=== PATIENT | female | born 1935 | race Caucasian/White ===

== ENCOUNTER → 2017-12-27 | Outpatient (CLI) | payer MEDICARE, OTHER ==
[~2017-12-27] MED LIST: ASPIRIN E.C. 8181 MG PO; DITROPAN 5MG TAB5 MG PO; LANOXIN 0.120.125 MG PO; LOPRESSOR 225 MG/TAB PO; LORTAB 5/500 501 TAB PO; PRADAXA 150MG150 MG PO; PRINZIDE 25 MG-1 TAB PO; REMERON 15M15 MG/TA1 PO; TOPROL XL 25MG25 MG PO; VESICARE 5MG5 MG PO; WHEELCHAIR; ZOCOR 20MG20 MG PO
== END ==
LOC: MC.RAD 10:53
DX: Z12.31 Encounter for screening mammogram for malignant neoplasm of breast (principal)

== ENCOUNTER 2018-09-03 06:42 | Day surgery (SDC) | payer MEDICARE, OTHER ==
[~2018-09-03] VITALS: Ht 162.6 cm; Wt 78.3 kg
[2018-09-03] VITALS (13 sets, daily range): BP systolic 106–147; BP diastolic 38–75; PULSE 64–99; TEMP 97.8–98.7
[2018-09-03] MEDS ORDERED: ZOCOR 20MG20 MG PO (07:03)
[2018-09-03] MEDS ORDERED: LANOXIN 0.120.125 MG PO (07:03)
[2018-09-03] MEDS ORDERED: VESICARE 5MG5 MG PO (07:04)
[2018-09-03] MEDS ORDERED: PRINIVIL20 MG PO (07:04)
[2018-09-03] MEDS ORDERED: REMERON 15M15 MG/TA1 PO (07:04)
[2018-09-03] MEDS ORDERED: TOPROL XL 25MG25 MG PO (07:04)
[2018-09-03] MEDS ORDERED: ELIQUIS 5MG PO (07:05)
[2018-09-03] MEDS ORDERED: PAMELOR 25MG25 MG PO (07:05)
--- NOTE | 2018-09-03 08:15 | NUR ---
Dr. Cheatham at the bedside and talks with patient.
--- NOTE | 2018-09-03 08:23 | NUR ---
Assisted patient to restroom where she voids and returns to room.
--- NOTE | 2018-09-03 09:48 | NUR ---
Patient's belongings bag x1 given to TRU Harry in PACU.
--- NOTE | 2018-09-03 10:30 | NUR ---
Patient is back from surgery. Denies pain and nausea at this time. Urine is pink/red with a few small clots. Increased CBI flow at this time. Bernabe is secured and draining well. Offere patient some water or some jello and she did not want anything at this time. No other changes at this time. Call light within reach.
--- NOTE | 2018-09-03 18:30 | NUR ---
Patient has been doing well today. No complaints of nausea or pain. Urine is light pink. CBI is folwing at a slow rate. Patients family brought her food in. She is on a strict sugar free diet. No other changes at this time. Call light within reach.
[2018-09-04 04:29] VITALS: BP 122/56; PULSE 66; TEMP 98.1
[2018-09-04 04:41] VITALS: BP 125/58; PULSE 98; TEMP 98.5
--- NOTE | 2018-09-04 06:03 | NUR ---
Patient has rested well overnight. CBI continues to run, urine is light pink and has small clots. Patient has not complained of pain, call light within reach.
[2018-09-04 07:20] LABS: CALCIUM 9.2 mg/dL (8.4-10.2); CREATININE, serum 1.27 (0.52-1.25); POTASSIUM 4.8 mmol/L (3.4-5.0)
[2018-09-04 07:39] VITALS: BP 139/59; PULSE 92; TEMP 98.1
--- NOTE | 2018-09-04 08:00 | NUR ---
PATIENT IS A&O. VSS. DENIES ANY C/O PAIN OR BLADDER SPASMS. [place]STON TO DEPENDENT DRAINAGE WITH MOD AMOUNTS OF LIGHT PINK URINE, NO CLOTS NOTED. CBI CLAMPED. ELIQUIS IS ON HOLD. OTHER AM MEDS GIVEN. HEAD TO TOE ASSESSMENT WNL. BREAKFAST TRAY AT BEDSIDE. NO C/O N/V. LEFT HAND IV TO INT. PATIENT ASSISTED INTO BEDSIDE CHAIR.
--- NOTE | 2018-09-04 08:30 | NUR ---
PRIMED & PULLED PER ORDERS. PATIENT EDUCATED AND STARTED ON 6 CUP ROUTINE. PATIENT AMBULATED TO BATHROOM AND VOIDED 150CC OF LIGHT PINK URINE, NO CLOTS NOTED. PATIENT EXCITED TO MT HOME LATER TODAY.
--- NOTE | 2018-09-04 09:45 | NUR ---
KYRA met with the patient and patient's daughter, Avis, to discuss discharge plan. The patient lives alone in [place]. She states that her daughter, Avis, lives six houses down from her. She states she has five other children. She reports independence with ADLs and does not have any DME. The patient's PCP is Dr. Jase Bustamante and she receives her medications through the mail from [facility]. She reports no difficulties obtaining her meds. The patient does not have advanced directives, but she was interested in obtaining a form for DPOA-HC. KYRA provided. The patient plans to return home upon discharge. No additional needs at this time.
--- NOTE | 2018-09-04 10:35 | NUR ---
Initial visit; Patient thanked Grip Wrapper for looking in on her and offering comfort, encouragement and God's blessings. Patient told Grip Wrapper she has wonderful kids who are always there for her. Grip Wrapper replied she must have been a wonderful mom to make them they way they are today.
--- NOTE | 2018-09-04 11:31 | NUR ---
The patient completed DPOA-HC. She designated her children, Avis Pedersen, Skyler Pedersen, Brendon Venturavamshiarslan, and Tommy Venturavamshiarslan. SW and the patient's CARDIOLOGY TECH, Evette, witnessed the patient's signature. The patient was provided with the original and some copies. A copy was placed in the patient's chart.
[2018-09-04 12:16] VITALS: BP 143/61; PULSE 84; TEMP 98.3
--- NOTE | 2018-09-04 13:05 | NUR ---
PATIENT DISCHARGING HOME VIA WHEELCHAIR TO PERSONAL VEHICLE WITH FAMILY. DISCHARGE INSTRUCTIONS GIVEN AND FOLLOW UP APT. ANSWERED ALL QUESTIONS/CONCERNS. DC'D LEFT HAND IV, COVERED SITE WITH GAUZE & BANDAID. PERSONAL BELONGINGS SENT WITH PATIENT. PATIENT DISCHARGED.
== END 2018-09-04 13:05 | disposition home or self-care (01) ==
LOC: SDCO 06:42 → SURG 10:19 → SDCO 12:00
PROVIDERS: Urology
DX: C67.9 Malignant neoplasm of bladder, unspecified (principal); N13.30 Unspecified hydronephrosis; R31.0 Gross hematuria; I48.91 Unspecified atrial fibrillation; F32.9 Major depressive disorder, single episode, unspecified; E11.9 Type 2 diabetes mellitus without complications; I10 Essential (primary) hypertension; E78.5 Hyperlipidemia, unspecified; Z79.01 Long term (current) use of anticoagulants; Z87.891 Personal history of nicotine dependence; Z90.49 Acquired absence of other specified parts of digestive tract; Z79.82 Long term (current) use of aspirin; Z86.73 Personal history of transient ischemic attack (TIA), and cerebral infarction without residual deficits; Z85.038 Personal history of other malignant neoplasm of large intestine
CPT/HCPCS: OP; C1769; J0690; J1100; J1885; J2405; J2704; J3010; J7030

== ENCOUNTER 2019-08-01 09:00 | Outpatient (RCR) | payer MEDICARE, OTHER ==
[2019-07-30 10:38] VITALS: BP 181/80; PULSE 110; TEMP 98.6
[2019-07-31 09:04] VITALS: BP 148/78; PULSE 98; TEMP 98.1
[~2019-08-01] VITALS: Ht 162.6 cm; Wt 81.0 kg
[~2019-08-01 09:00] MED LIST changes: +ELIQUIS 5MG PO; +LISINOPRIL-HCTZ 20-2 PO; +PAMELOR 25MG25 MG PO; +PRINIVIL20 MG PO; +TOVIAZ4 MG PO; +ZESTORETIC 25 M1 TAB PO
[2019-08-01 09:25] VITALS: BP 160/61; PULSE 86; TEMP 98.1
== END 2019-08-01 09:57 | disposition home or self-care (01) ==
LOC: EUO 09:00
DX: C67.8 Malignant neoplasm of overlapping sites of bladder (principal); I74.9 Embolism and thrombosis of unspecified artery

== ENCOUNTER 2019-10-28 08:19 | Outpatient (CLI) | payer MEDICARE, OTHER ==
[~2019-10-28] VITALS: Ht 162.6 cm; Wt 78.8 kg
[~2019-10-28 08:19] MED LIST changes: +FERROUS SU325 MG/TAB PO; +LOVENOX120 MG/0.8 SQ; +MONODOX100 PO; +TOPROL XL 50MG50 MG PO
[2019-10-28] MEDS ORDERED: ELIQUIS 5MG PO (08:44)
[2019-10-28] MEDS ORDERED: TOVIAZ4 MG PO (08:45)
[2019-10-28 08:51] VITALS: BP 137/73; PULSE 92; TEMP 98.2
[2019-10-28 08:52] LABS: HEMATOCRIT 39.3 % (37.0-47.0); INR 1.2 (0.8-3.0); MEAN CELL VOLUME 80 fl (80.0-100.0); MEAN CORPUSCULAR HEMOGLOBIN 24 pg (27.0-31.0); MEAN CORPUSCULAR HGB CONC 30 g/dl (33.0-37.0); PLATELET COUNT 319 K/mm3 (130-400); PROTHROMBIN TIME 13.5 SECONDS (9.7-12.8); RED BLOOD COUNT 4.92 M/mm3 (4.10-5.30)
[2019-10-28 08:55] LABS: CALCIUM 10.2 mg/dL (8.4-10.2); CREATININE, serum 1.32 (0.52-1.25)
[2019-10-28 08:58] LABS: HEMOGLOBIN 11.8 g/dl (12.5-16.0)
[2019-10-28] MEDS ORDERED: PACERONE400 MG PO ×2 (11:51→11:52)
[2019-10-28 12:00] VITALS: BP 118/56; PULSE 71
[2019-10-28] MEDS ORDERED: PRINIVIL10 MG PO (12:02)
[2019-10-28 12:15] VITALS: BP 121/61; PULSE 75
[2019-10-28 12:30] VITALS: BP 113/55; PULSE 67
[2019-10-28 12:45] VITALS: BP 120/53; PULSE 65
--- NOTE | 2019-10-28 13:10 | NUR ---
DC instructions reviewed with pt and son Pat. Both express understanding. IV DC'd with catheter intact. Pt has been tolerating water without difficulty. Pt is escorted out by wheelchair to son's car.
== END 2019-10-28 13:10 | disposition home or self-care (01) ==
LOC: COL.RAD
PROVIDERS: Internal Medicine Cardiovascular Disease
DX: I48.91 Unspecified atrial fibrillation (principal)
CPT/HCPCS: J2704

== ENCOUNTER 2019-12-05 08:12 | Day surgery (SDC) | payer MEDICARE, OTHER ==
[~2019-12-05] VITALS: Ht 162.6 cm; Wt 79.5 kg
[2019-12-05] VITALS (7 sets, daily range): BP systolic 112–146; BP diastolic 50–93; PULSE 18–93; TEMP 98.5
[~2019-12-05 08:12] MED LIST changes: +PACERONE400 MG PO; +PRINIVIL10 MG PO
[2019-12-05] MEDS ORDERED: PACERONE400 MG PO (08:31)
[2019-12-05] MEDS ORDERED: PRINIVIL20 MG PO (08:32)
[2019-12-05] MEDS ORDERED: TOPROL XL 50MG50 MG PO (08:33)
[2019-12-05] MEDS ORDERED: ZOCOR 20MG20 MG PO (08:33)
[2019-12-05 09:00] LABS: HEMATOCRIT 40.5 % (37.0-47.0); HEMOGLOBIN 12.2 g/dl (12.5-16.0); MEAN CELL VOLUME 84 fl (80.0-100.0); MEAN CORPUSCULAR HEMOGLOBIN 25 pg (27.0-31.0); MEAN CORPUSCULAR HGB CONC 30 g/dl (33.0-37.0); MEAN PLATELET VOLUME 8.9 fl (7.4-10.4); PLATELET COUNT 304 K/mm3 (130-400); RED BLOOD COUNT 4.81 M/mm3 (4.10-5.30); REDCELL DISTRIBUTION WIDTH-CV 21.7 % (11.5-14.5)
[2019-12-05 09:05] LABS: INR 1.6 (0.8-3.0); PROTHROMBIN TIME 18.2 SECONDS (9.7-12.8)
[2019-12-05 09:08] LABS: PARTIAL THROMBOPLASTIN TIME 37.3 SECONDS (26.0-37.0)
[2019-12-05 09:20] LABS: CALCIUM 10.1 mg/dL (8.4-10.2); CREATININE, serum 1.32 (0.52-1.25); MAGNESIUM 2.1 mg/dL (1.6-2.3); POTASSIUM 4.5 mmol/L (3.4-5.0)
[2019-12-05 09:48] LABS: THYROID STIMULATING HORMONE 1.44 uIU/mL (0.465-4.680)
--- NOTE | 2019-12-05 11:17 | NUR ---
PT TO EXIT AT THIS TIME. PT CARE WAS ASSUMED AT 0945 FROM EMILY OTT. PT WAS SUCCESSFULLY CARDIOVERTED TO SINUS DAVIS RATE 50'S. PT HAS REMAINED PWD, GCS 15, WITH REG AND UNLABORED RESPS. DAUGHTER HAS REMAINED WITH PT AT BS. POST EKG WAS OBTAINED. I HAVE REVIEWED DC AND FU INSTRUCTIONS WITH PT AND DAUGHTER WHO DENIED ANY QUESTIONS OR CONCERNS. IV WAS DC'D WITH CATH INTACT, DRESSING WAS APPLIED. STEADY ON FEET IN HER ROOM. ESCORTED TO EXIT VIA WHEELCHAIR.
== END 2019-12-05 12:37 | disposition home or self-care (01) ==
LOC: COL.CAR 08:12
PROVIDERS: Internal Medicine Cardiovascular Disease
DX: I48.91 Unspecified atrial fibrillation (principal); Z20.828 Contact with and (suspected) exposure to other viral communicable diseases; Z85.51 Personal history of malignant neoplasm of bladder; Z92.21 Personal history of antineoplastic chemotherapy; I10 Essential (primary) hypertension; Z86.73 Personal history of transient ischemic attack (TIA), and cerebral infarction without residual deficits; E78.5 Hyperlipidemia, unspecified; Z85.038 Personal history of other malignant neoplasm of large intestine; F32.9 Major depressive disorder, single episode, unspecified; E11.9 Type 2 diabetes mellitus without complications; Z86.718 Personal history of other venous thrombosis and embolism; Z88.3 Allergy status to other anti-infective agents; Z79.01 Long term (current) use of anticoagulants; Z87.891 Personal history of nicotine dependence
CPT/HCPCS: J2704; J7120

== ENCOUNTER 2020-06-29 11:26 | Day surgery (SDC) | payer MEDICARE, OTHER ==
[~2020-06-29] VITALS: Ht 162.6 cm; Wt 82.0 kg
[2020-06-29 12:12] VITALS: BP 173/95; PULSE 94; TEMP 97.9
[2020-06-29] MEDS ORDERED: DOXYCYCLINE HY100 MG PO (12:20)
--- NOTE | 2020-06-29 12:22 | NUR ---
TO RM AT 1141- CALL LIGHT IN REACH DAUGHTER AT BEDSIDE.
[2020-06-29 14:10] VITALS: BP 152/85; PULSE 80
--- NOTE | 2020-06-29 14:10 | NUR ---
Patient returns to room 2 per cart from surgery accompanied by Yakelin OTT and Nael Moraes CRNA and is arouses to verbal stimuli. Temp 98.1 and room air sats 93%. Left port a catheter site covered with gauze dressing. IV fluids infusing left forearm and site is free of redness. Siderails up x2 and call light in reach. Family at side. Allowed to rest.
[2020-06-29] MEDS ORDERED: NORCO 325 MG-51 TAB PO (14:11)
[2020-06-29 14:25] VITALS: BP 146/75; PULSE 87
--- NOTE | 2020-06-29 14:25 | NUR ---
Awake and denies pain or nausea. Talking with family.
[2020-06-29 14:40] VITALS: BP 143/67; PULSE 74
--- NOTE | 2020-06-29 14:40 | NUR ---
Drinking orange juice and eating chocolate pudding.
[2020-06-29 14:55] VITALS: BP 149/63; PULSE 81
--- NOTE | 2020-06-29 14:55 | NUR ---
Tolerated snack and juice. Denies pain or nausea. IV discontinued and site is free of redness or swelling. Given dismissal instructions and voices understanding of home cares. Informed that script for [place] will be ready for picker and packer at [facility]. Dressing remains clean and dry on the left port a catheter site.
--- NOTE | 2020-06-29 15:00 | NUR ---
Dismissal instructions signed and patient dressed.
--- NOTE | 2020-06-29 15:03 | NUR ---
Patient dismissed to home driven by daughter and taken to the front door per wheelchair and assisted into vehicle with instructions in hand.
== END 2020-06-29 15:03 | disposition home or self-care (01) ==
LOC: SDCO 11:26
DX: C67.9 Malignant neoplasm of bladder, unspecified (principal); I10 Essential (primary) hypertension; I48.91 Unspecified atrial fibrillation; E78.5 Hyperlipidemia, unspecified; I47.1 Supraventricular tachycardia; F32.9 Major depressive disorder, single episode, unspecified; G89.29 Other chronic pain; E11.9 Type 2 diabetes mellitus without complications; E78.00 Pure hypercholesterolemia, unspecified; Z90.710 Acquired absence of both cervix and uterus; Z96.659 Presence of unspecified artificial knee joint; Z79.01 Long term (current) use of anticoagulants; Z79.899 Other long term (current) drug therapy; Z86.73 Personal history of transient ischemic attack (TIA), and cerebral infarction without residual deficits; Z85.038 Personal history of other malignant neoplasm of large intestine; Z92.21 Personal history of antineoplastic chemotherapy; Z91.041 Radiographic dye allergy status
CPT/HCPCS: C1788; J0690; J1100; J1644; J2405; J2704; J3010; J7120

== ENCOUNTER → 2021-05-17 | Outpatient (CLI) | payer MEDICARE, OTHER ==
[~2021-05-17] MED LIST changes: +DOXYCYCLINE HY100 MG PO; +NORCO 325 MG-51 TAB PO
== END ==
LOC: MHCPAIN 13:54
DX: M47.817 Spondylosis without myelopathy or radiculopathy, lumbosacral region (principal); M53.3 Sacrococcygeal disorders, not elsewhere classified; M54.50 Low back pain, unspecified
CPT/HCPCS: G0463

== ENCOUNTER → 2021-06-02 | Outpatient (CLI) | payer MEDICARE, OTHER | LOC: MHCPAIN 09:50 | DX: M53.3 Sacrococcygeal disorders, not elsewhere classified (principal); M54.50 Low back pain, unspecified; M47.817 Spondylosis without myelopathy or radiculopathy, lumbosacral region ==

== ENCOUNTER → 2021-06-07 | Outpatient (CLI) | payer MEDICARE, OTHER | LOC: MHCPAIN 12:49 | DX: M47.817 Spondylosis without myelopathy or radiculopathy, lumbosacral region (principal); M54.50 Low back pain, unspecified; M53.3 Sacrococcygeal disorders, not elsewhere classified | CPT/HCPCS: G0463 ==

== ENCOUNTER → 2021-06-16 | Outpatient (CLI) | payer MEDICARE, OTHER | LOC: MHCPAIN 12:35 | DX: M47.817 Spondylosis without myelopathy or radiculopathy, lumbosacral region (principal); M54.50 Low back pain, unspecified; M53.3 Sacrococcygeal disorders, not elsewhere classified ==

== ENCOUNTER → 2021-06-22 | Outpatient (CLI) | payer MEDICARE, OTHER | LOC: MHCPAIN 08:49 | DX: M47.816 Spondylosis without myelopathy or radiculopathy, lumbar region (principal); M53.3 Sacrococcygeal disorders, not elsewhere classified; M54.16 Radiculopathy, lumbar region; M48.062 Spinal stenosis, lumbar region with neurogenic claudication | CPT/HCPCS: G0463 ==

== ENCOUNTER → 2021-06-30 | Outpatient (CLI) | payer MEDICARE, OTHER | LOC: MHCPAIN 09:53 | DX: M47.816 Spondylosis without myelopathy or radiculopathy, lumbar region (principal); M53.3 Sacrococcygeal disorders, not elsewhere classified; M54.16 Radiculopathy, lumbar region | CPT/HCPCS: A9585; J1100 ==

== ENCOUNTER → 2021-07-19 | Outpatient (CLI) | payer MEDICARE, OTHER | LOC: MHCPAIN 09:16 | DX: M47.817 Spondylosis without myelopathy or radiculopathy, lumbosacral region (principal); M53.3 Sacrococcygeal disorders, not elsewhere classified; M54.50 Low back pain, unspecified | CPT/HCPCS: G0463 ==

== ENCOUNTER → 2021-07-28 | Outpatient (CLI) | payer MEDICARE, OTHER | LOC: MHCPAIN 08:19 | DX: M47.817 Spondylosis without myelopathy or radiculopathy, lumbosacral region (principal); M53.3 Sacrococcygeal disorders, not elsewhere classified | CPT/HCPCS: A9575; G0260; J1040; Q9967 ==

== ENCOUNTER → 2021-08-17 | Outpatient (CLI) | payer MEDICARE, OTHER | LOC: MHCPAIN 14:15 | DX: M47.896 Other spondylosis, lumbar region (principal); M53.3 Sacrococcygeal disorders, not elsewhere classified; M54.50 Low back pain, unspecified | CPT/HCPCS: G0463 ==

== ENCOUNTER 2021-10-05 10:49 | Day surgery (SDC) | payer MEDICARE, OTHER ==
[~2021-10-05] VITALS: Ht 162.6 cm; Wt 82.1 kg
[~2021-10-05 10:49] MED LIST changes: +PACERONE200 MG PO; +PRINIVIL5 MG PO
[2021-10-05] MEDS ORDERED: ZAROXOLYN5 MG PO (11:16)
[2021-10-05 11:18] VITALS: BP 136/67; PULSE 67; TEMP 98.6
[2021-10-05 11:24] LABS: BASO % 0.3 % (0.0-2.0); EOS % 0.4 % (0.0-4.0); GRAN # 8.2 K/mm3 (1.4-6.5); GRAN % 79.6 % (42.2-75.2); HEMATOCRIT 44.5 % (37.0-47.0); HEMOGLOBIN 13.6 g/dl (12.5-16.0); LYMPH % 10.1 % (20.0-51.0); MEAN CELL VOLUME 94 fl (80.0-100.0); MEAN CORPUSCULAR HEMOGLOBIN 29 pg (27-31); MEAN CORPUSCULAR HGB CONC 31 g/dl (33.0-37.0); MEAN PLATELET VOLUME 9.6 fl (7.4-10.4); MONO # 0.9 K/mm3 (0.1-0.6); MONO % 8.5 % (1.7-9.3); PLATELET COUNT 317 K/mm3 (130-400); RED BLOOD COUNT 4.74 M/mm3 (4.10-5.30); REDCELL DISTRIBUTION WIDTH-CV 14.4 % (11.5-14.5)
[2021-10-05 11:31] LABS: INR 1.9 (0.8-3.0); PROTHROMBIN TIME 21.8 SECONDS (9.7-12.8)
[2021-10-05 11:34] LABS: PARTIAL THROMBOPLASTIN TIME 34.1 SECONDS (26.0-37.0)
[2021-10-05 12:09] LABS: CALCIUM 10.1 mg/dL (8.4-10.2); CREATININE, serum 1.43 mg/dL (0.57-1.11); MAGNESIUM 1.7 mg/dL (1.6-2.6); POTASSIUM 4.6 mmol/L (3.5-4.5)
[2021-10-05 12:28] LABS: THYROID STIMULATING HORMONE 0.8 uIU/mL (0.350-4.940)
[2021-10-05 12:45] VITALS: BP 87/56; PULSE 53
[2021-10-05 13:00] VITALS: BP 117/55; PULSE 49
[2021-10-05 13:15] VITALS: BP 117/49; PULSE 49
[2021-10-05 13:30] VITALS: BP 117/49; PULSE 48
[2021-10-05 13:45] VITALS: BP 110/46; PULSE 49
--- NOTE | 2021-10-05 14:11 | NUR ---
DC instructions reviewed with pt. She expresses understanding. She is assisted out to son's car by wheelchair with belongings. IV DC'd, site wrapped with coban. She has tolerated PO without issue. Small petichiae noted at site of large defib pad that was placed to central chest. Pt denies irritation at site.
== END 2021-10-05 14:00 | disposition home or self-care (01) ==
LOC: COL.CAR 10:49
PROVIDERS: Internal Medicine Cardiovascular Disease
DX: I48.0 Paroxysmal atrial fibrillation (principal)
CPT/HCPCS: J7120

== ENCOUNTER → 2021-11-07 | Outpatient (CLI) | payer MEDICARE, OTHER ==
[~2021-11-07] MED LIST changes: +ZAROXOLYN5 MG PO
== END ==
LOC: COL.RAD 10:30
DX: Z08 Encounter for follow-up examination after completed treatment for malignant neoplasm (principal); Z85.51 Personal history of malignant neoplasm of bladder; R91.1 Solitary pulmonary nodule; K80.20 Calculus of gallbladder without cholecystitis without obstruction; Z90.6 Acquired absence of other parts of urinary tract; Z93.2 Ileostomy status

== ENCOUNTER 2021-11-25 10:05 | Inpatient (IN) | payer MEDICARE, OTHER ==
[~2021-11-25] VITALS: Ht 162.6 cm; Wt 81.1 kg
[~2021-11-25 10:05] MED LIST changes: +CELEBREX 1100 MG/CAP PO; +ELIQUIS 2.5 PO; +KEYTRUDA25 MG/ML; +NEURONTIN100 MG/CAP PO; +ROCEPHIN VIA1 G/VIAL IV; +TYLENOL 500MG500 MG PO
[2021-11-25] MEDS ORDERED: ANUSOL HC CREAM30 GM TP (10:12)
[2021-11-25 10:47] VITALS: BP 130/81; PULSE 83; TEMP 98.2
--- NOTE | 2021-11-25 11:10 | NUR ---
New pt transferred to unit from Medical floor. She is a/o x 4. She reports some low back pain from laying in her bed. Portacath left chest noted. Transparent dressing was changed this morning prior to admission to unit. IVF infusing w/out difficulty. Urostomy patent to aguirre drainage bag. Pt denied valuables. Pt. currently off the unit for eval by PT. Orientation was provided to room/unit.
--- NOTE | 2021-11-25 12:32 | NUR ---
Pt sitting up in bed working on eating her lunch. Pt. just completed a shower w/ OT assistance and vomited a small amt. Pt. denies abd. pain and nausea. She reports "feeling better". Pt. denies additional needs at this time. Call light is in her reach
--- NOTE | 2021-11-25 15:18 | NUR ---
PT reporting that pt continues to mention intermittent nausea w/out further vomiting. New order received for PRN Zofran. Pt. declines dose at this time
[2021-11-25 17:21] VITALS: BP 144/58; PULSE 91; TEMP 98.5
--- NOTE | 2021-11-25 19:00 | NUR ---
PT RESTING IN BED. ENC PT TO PULL SELF UP IN BED. LATE DINNER TRAY HERE. NS AT 75CC/HR TO PORTACATH. UROSTOMY DRAINING CLEAR DILUTE YELLOW URINE. DENIES PAIN. CALL LIGHT IN REACH. BED ALARM SET.
--- NOTE | 2021-11-25 21:11 | NUR ---
ANNUSOL CREAM APPLIED TO HEMMORHOIDS- NON BLLEDING.
[2021-11-26 05:38] VITALS: BP 137/59; PULSE 95; TEMP 99
--- NOTE | 2021-11-26 06:54 | NUR ---
BEDSIDE REPORT DONE ORDER. PATIENT RESTING IN BED. CALL LIGHT IN REACH
--- NOTE | 2021-11-26 09:59 | NUR ---
ASSESSMENT DONE ORDER. PATIENT ATE HER CEREAL THIS AM. NO PAIN NOTED. ALERT AND ORIENTED
--- NOTE | 2021-11-26 10:28 | NUR ---
Patient requested her Stoma appliace to be changed, changed per her request. Used supplies and changed liked her daughter in law does at home. Evette primary nurse made aware
--- NOTE | 2021-11-26 11:26 | NUR ---
Director Of Design met with patient to complete intake as patient is new to [facility]. Patient lives alone in [place] and sees Dr. Bustamante for primary care. Patient obtains medications either by mail or at [facility]. Patient has a rollator, stair lift, electric bed, and a walk in shower. Patient lives in a one level home. Patient has DPOA-HC in chart which designates her four children: Avis, Skyler, Brendon, and Tommy although patient stated Tommy is now . SW will continue to follow for discharge needs.
--- NOTE | 2021-11-26 12:50 | NUR ---
stopped by but nothing needed at this time.
[2021-11-26 17:23] VITALS: BP 158/82; PULSE 103; TEMP 98.6
--- NOTE | 2021-11-26 20:30 | NUR ---
PT RESTING IN BED. DENIES PAIN OTHER THAN HEMORRHOIDS. ANSOL OINTMENT APPLIED. UROSTOMY STOMA PINK. URINE CLEAR YELLOW RETURN. CALL LIGHT IN REACH. BED ALARM SET.
[2021-11-27 05:57] VITALS: BP 135/56; PULSE 85; TEMP 98.7
--- NOTE | 2021-11-27 06:34 | NUR ---
ASSESSMENT DONE. PATIENT RESTING IN BED. CALL LIGHT IN REACH
--- NOTE | 2021-11-27 09:35 | NUR ---
ASSESSMENT DONE ORDER. PATIENT RESTING TODAY. UROSTOMY CONTINUE TO FLOW YELLOW CLEAR URINE WITH VERY LITTLE SENDMENT NOTED. YESTERDAY WAS MORE THAN NORMAL. PATIENT HAS BEEN DRINKING MORE WATER THROUGH OUT THE DAY
[2021-11-27 17:34] VITALS: BP 151/60; PULSE 92; TEMP 98.6
--- NOTE | 2021-11-27 20:56 | NUR ---
PT RESTING IN BED. NO DISTRESS. UROSTOMY STOMA PINK. URINE CLEAR YELLOW. NO PAIN. CALL LIGHT IN REACH. BED ALARM SET.
[2021-11-28 05:46] VITALS: BP 144/55; PULSE 95; TEMP 98.4
--- NOTE | 2021-11-28 06:13 | NUR ---
LAB OBTAINED VIA BART CATH. FLUSHED WITH NS AND HEPARIN. GOOD UO THROUGH THE NIGHT. NO COMPLAINTS. CALL LIGHT IN REACH. BED ALARM SET.
--- NOTE | 2021-11-28 06:44 | NUR ---
Shift report received from psych therapist RN
[2021-11-28 07:04] LABS: CALCIUM 8.4 mg/dL (8.4-10.2); POTASSIUM 3.7 mmol/L (3.5-4.5)
[2021-11-28 07:31] LABS: CREATININE, serum 1.01 mg/dL (0.57-1.11)
--- NOTE | 2021-11-28 09:06 | NUR ---
Pt resting in supine in bed w/ HOB slightly elevated. Urostomy bag was changed at pt's request. Portacath left chest dressing CDI. Express Unit called to remind nurse of scheduled cardioversion tomorrow. Appt. canceled. Express Unit charge nurse will inform cardiology that pt is currently inpatient
--- NOTE | 2021-11-28 10:22 | NUR ---
PT called to report that pt currently has a nosebleed. No nasal or injury or trauma reported. Pt. is applying pressure. She reports this is the 2nd nosebleed since her admission to [facility]. Will continue to monitor
--- NOTE | 2021-11-28 10:59 | NUR ---
Pt back in bed after PT. Nosebleed has resolved. Pt. reporting some nausea. PRN Zofran given
--- NOTE | 2021-11-28 13:36 | NUR ---
Introduced self as the SW & explained role of SW. Pt stated things have been going well & the nurses have been great. Explained that SW needed to follow up on a question. Asked her if she had any problems w/ getting to Dr. appointments or any other type of appointments. She told SW that her family is great about taking her to these appointments but if the office suprises them w/ an appointment then it is sometimes difficult since her family works.
--- NOTE | 2021-11-28 14:42 | NUR ---
Admission QIM scores were reviewed by the team. Code of 6 chosen for eating was determined by team discussion to be the most usual performance before interventions for this patient during the assessment period. Code of 3 chosen for toilet hygiene was determined by team discussion to be the most usual performance before interventions for this patient during the assessment period. Code of 3 chosen for toilet transfer was determined by team discussion to be the most usual performance before interventions for this patient during the assessment period.--Debra Salazar, PD
[2021-11-28 18:10] VITALS: BP 146/64; PULSE 109; TEMP 98.5
--- NOTE | 2021-11-28 19:11 | NUR ---
RECEIVED CHANGE OF SHIFT REPORT FROM DAY SHIFT RN. PATIENT RESTING IN BED, EXIT ALARM ON, CALL LIGHT WITHIN REACH. NO NEEDS REPORTED AT TIME OF REPORT.
[2021-11-29 05:17] VITALS: BP 134/50; PULSE 80; TEMP 98.4
--- NOTE | 2021-11-29 06:44 | NUR ---
CHANGE OF SHIFT REPORT GIVEN TO DAY SHIFT RNMARRY.
--- NOTE | 2021-11-29 06:49 | NUR ---
Shift report received from caustic cresylate shift superintendent RN
--- NOTE | 2021-11-29 08:41 | NUR ---
Pt. resting supine in bed. She denies pain/discomfort. Denies nausea. Urostomy patent to aguirre drainage bag with clear, yellow return. Portacath left chest dressing is CDI. Port flushed w/out difficulty w/ noted blood return. Pt. denies additional needs at this time. Call light is in her reach
--- NOTE | 2021-11-29 10:33 | NUR ---
Pt is off the unit for Group Therapy
[2021-11-29 17:55] VITALS: BP 180/81; PULSE 109; TEMP 98.2
[2021-11-29 17:56] VITALS: BP 144/52; PULSE 101
--- NOTE | 2021-11-29 19:40 | NUR ---
RECEIVED CHANGE OF SHIFT REPORT FROM DAY SHIFT RN. PATIENT RESTING IN BED AFTER USING RESTROOM. EXIT ALARM ON WHEN BACK IN BED, CALL LIGHT WITHIN REACH. DENIES ANY OTHER NEEDS AT TIME OF REPORT. UROSTOMY TO DD COLLECTION OVERNIGHT BAG, DRAINING CLEAR YELLOW URINE.
[2021-11-30 05:27] VITALS: BP 150/82; PULSE 100; TEMP 98.4
--- NOTE | 2021-11-30 06:58 | NUR ---
CHANGE OF SHIFT REPORT GIVEN TO DAY SHIFT RNCRYSTAL.
--- NOTE | 2021-11-30 07:06 | NUR ---
ASSESSMENT DONE. PATIENT RESTING IN BED. CALL LIGHT IN REACH
--- NOTE | 2021-11-30 10:33 | NUR ---
ASSESSMENT DONE. PATIENT RESTING IN BED WITH NO DISTRESS. GETTING UP WITH SLIGHTLY HELP FROM BED. PATIENT IS SET TO GO HOME TOMORROW. WITH HOME HEALTH. PATIENT ABLE TO TAKE HER SELF TO THE RESTROOM AND CLEAN SELF WTIH OUT ANY HELP.
--- NOTE | 2021-11-30 12:50 | NUR ---
Visited w/ pt about team conference & provided copy of team conference notes. Informed her the team feels she has made good progress & have made her modified independent in her room, which she confirmed. Told her the team would like to d/c her tomorrow, 12/01/21, to home w/ home health. Explained what home health is & can do & provided her a list of agencies from Medicare.gov. She at first asked if she could wait a week until her son returns but explained the team would like to start it at d/c. She was fine w/ this & stated she would visit w/ her [id number] since she had experience in this. Reviewed equipment & was reassured she had all the equipment that she needed at home. Explained about d/c process for tomorrow. Will continue to follow & assist w/ d/c planning for home health.
[2021-11-30 17:58] VITALS: BP 148/55; PULSE 96; TEMP 98.8
--- NOTE | 2021-11-30 18:28 | NUR ---
PATIENT WILL BE DISCHARGE TOMORROW. DR DE PAZ SENT UP FOR DEC 20 AT 1:15PM. ONCOLOGY TRAN ON Dec AT 3PM. FLU VACCINE WAS GIVEN TO PATIENT TODAY. NO DISTRESS NOTED. PATIENT STATED THAT SHE DOESNT HAVE ANY PAIN TODAY. PATIENT IS NOT MOD I IN ROOM.
--- NOTE | 2021-11-30 20:30 | NUR ---
PT RESTING IN BED. MOD I IN ROOM WITH WALKER. PT NEEDS CUING TO REPOSITION UP TO TOP OF BED. PT LEGS OFF EDGE. PT MANAGING UROSTOMY BAG TO DEPENDENT DRAINAGE. ENC TO CALL STAFF IF NEEDING ASSISTANCE. PROMOTED SAFETY. CALL LIGHT IN REACH.
--- NOTE | 2021-12-01 02:45 | NUR ---
PT SLEEPING. NO DISTRESS.
[2021-12-01 05:00] VITALS: BP 137/89; PULSE 98; TEMP 98.5
--- NOTE | 2021-12-01 05:12 | NUR ---
FLUSHED BART CATH WITH NS/ HEPARIN. DEACCESSED BART CATH COREAS NEEDLE. SITE CLEAN NAD DRY. LIGHT DRSG APPLIED.
--- NOTE | 2021-12-01 09:30 | NUR ---
Met w/ pt to visit about her d/c to home today. Inquired if she spoke to her [id number] about the home health, which she had but she also did not know anything about. After a conversation about all the facilities, pt decided she wanted to use [facility]. Reviewed w/ her on what they would be providing (nursing, PT, OT, & bath aide). She did voice some frustrations about other doctors before hospitalization not figuring out what was wrong w/ her. Provided support & let her vent.
--- NOTE | 2021-12-01 09:45 | NUR ---
Contacted [facility] & spoke w/ Giovanny. Referral made for PT, OT, nursing, & bath aide. Faxed referral information.
== END 2021-12-01 10:30 | disposition home health service (06) | DRG 948 ==
PROVIDERS: Student in an Organized Health Care Education/Training Program; ADMIT Physical Medicine & Rehabilitation Sports Medicine
DX: R53.81 Other malaise (principal); N39.0 Urinary tract infection, site not specified; N17.9 Acute kidney failure, unspecified; E87.20 Acidosis, unspecified; I48.20 Chronic atrial fibrillation, unspecified; E87.1 Hypo-osmolality and hyponatremia; B96.20 Unspecified Escherichia coli [E. coli] as the cause of diseases classified elsewhere; N18.9 Chronic kidney disease, unspecified; I12.9 Hypertensive chronic kidney disease with stage 1 through stage 4 chronic kidney disease, or unspecified chronic kidney disease; E78.2 Mixed hyperlipidemia; E83.52 Hypercalcemia; R79.89 Other specified abnormal findings of blood chemistry; R26.89 Other abnormalities of gait and mobility; Z73.6 Limitation of activities due to disability; Z85.51 Personal history of malignant neoplasm of bladder; Z85.038 Personal history of other malignant neoplasm of large intestine; Z86.73 Personal history of transient ischemic attack (TIA), and cerebral infarction without residual deficits; Z91.041 Radiographic dye allergy status; Z91.048 Other nonmedicinal substance allergy status; Z79.01 Long term (current) use of anticoagulants; Z79.899 Other long term (current) drug therapy; Z87.891 Personal history of nicotine dependence; Z86.718 Personal history of other venous thrombosis and embolism
CPT/HCPCS: J0696; J1644; J7030

== ENCOUNTER 2021-12-19 10:23 | Day surgery (SDC) | payer MEDICARE ==
[~2021-12-19] VITALS: Ht 162.6 cm; Wt 83.6 kg
[~2021-12-19 10:23] MED LIST changes: +ANUSOL HC CREAM30 GM TP
[2021-12-19 11:13] LABS: HEMOGLOBIN 10.3 g/dl (12.5-16.0); MEAN CELL VOLUME 89 fl (80.0-100.0); MEAN CORPUSCULAR HEMOGLOBIN 27 pg (27-31); MEAN CORPUSCULAR HGB CONC 30 g/dl (33.0-37.0); MEAN PLATELET VOLUME 9.2 fl (7.4-10.4); PLATELET COUNT 377 K/mm3 (130-400); RED BLOOD COUNT 3.82 M/mm3 (4.10-5.30); REDCELL DISTRIBUTION WIDTH-CV 15.9 % (11.5-14.5)
[2021-12-19 11:17] VITALS: BP 144/65; PULSE 90; TEMP 97.2
[2021-12-19 11:17] LABS: HEMATOCRIT 33.9 % (37.0-47.0)
[2021-12-19 11:20] VITALS: BP 144/65; PULSE 90; TEMP 97.2
[2021-12-19 11:32] LABS: CREATININE, serum 0.95 mg/dL (0.57-1.11); MAGNESIUM 1.8 mg/dL (1.6-2.6)
[2021-12-19 11:50] VITALS: BP 110/46; PULSE 69; TEMP 98.3
[2021-12-19 11:52] LABS: THYROID STIMULATING HORMONE 0.662 uIU/mL (0.350-4.940)
[2021-12-19 12:05] VITALS: BP 132/58; PULSE 66
[2021-12-19 12:20] VITALS: BP 130/56; PULSE 67
[2021-12-19 12:50] VITALS: BP 132/54; PULSE 66
== END 2021-12-19 14:39 ==
LOC: COL.CAR 10:23
PROVIDERS: Internal Medicine Cardiovascular Disease
DX: I48.91 Unspecified atrial fibrillation (principal); I10 Essential (primary) hypertension
CPT/HCPCS: J1644; J2704; J7120